=== PATIENT | male | born 1925 | race Asian ===

== ENCOUNTER → 2016-11-04 | Outpatient (CLI) | payer OTHER ==
[~2016-11-04] MED LIST: ASPI-496 PO; ATOR20TA9 PO; CARV3.122 PO; DIGO125T PO; FURO-93 PO; LOSA100T2 PO; MIRT15TA4 PO; TAMS0.4C2 PO; WARF1TAB7 PO
== END | disposition home or self-care (01) ==
LOC: CFH 13:55
PROVIDERS: ATTEND Specialist
DX: K21.9 Gastro-esophageal reflux disease without esophagitis (principal); R12 Heartburn; K22.8 Other specified diseases of esophagus
CPT/HCPCS: 74220